=== PATIENT | male | born 1975 | race Caucasian/White ===

== ENCOUNTER 2022-04-15 10:02 | Emergency (ER) | payer SELFPAY ==
[~2022-04-15 10:02] MED LIST: Iopamidol 370 76% 100 ML VIAL ONE
[2022-04-15 10:50] LABS: ALT (SGPT) 30 U/L (8-55); AST (SGOT) 23 U/L (5-34); Albumin 4.1 g/dL (3.5-5.0); Alkaline Phosphatase 86 U/L (40-110); Anion Gap 21 mmol/L (10-20); BUN (Urea Nitrogen) 14 mg/dL (8.9-20.6); Bilirubin, Total 0.4 mg/dL (0.2-1.2); Calc. Creatinine Clearance 0 mL/min (70-130); Calcium 8.9 mg/dL (7.8-10.44); Carbon Dioxide 15 mmol/L (22-29); Chloride 103 mmol/L (98-107); Estimated GFR 109; Globulin 3.6 g/dL (2.4-3.5); Glucose 148 mg/dL (70-105); Potassium 4.4 mmol/L (3.5-5.1); Protein, Total 7.7 g/dL (6.0-8.3); Sodium 135 mmol/L (136-145)
[2022-04-15 11:27] LABS: Hemoglobin 15.8 g/dL (14.0-18.0); MDiff Complete? YES; Mean Corpuscular HGB CONC 32.2 g/dL (32.0-36.0); Mean Corpuscular Volume 93.1 fL (78.0-98.0); Mean Platelet Volume 9.4 fL (7.4-10.4); Platelet Count 315 thou/uL (130-400); Red Blood Cell (RBC) Count 5.27 mill/uL (4.70-6.10); White Blood Cell (WBC) Count 25.5 thou/uL (4.8-10.8)
[2022-04-15 11:28] LABS: Band 6 % (5-11); Lymphocytes 10 % (21-51); Monocytes 2 % (0-10); Neutrophil 82 % (42-75); Platelet Morphology Comment Appears Adequate
== END 2022-04-15 12:48 | disposition short-term general hospital (02) ==
LOC: NAV ERS 10:02
DX: D72.829 Elevated white blood cell count, unspecified (principal)
CPT/HCPCS: 71275; 80053; 83605; 83880; 84484; 85025; 85379; 87040; 93005; Q9967